=== PATIENT | female | born 1970 | race Caucasian/White ===

== ENCOUNTER 2018-12-23 00:27 | Emergency (ER) | payer SELFPAY ==
[2018-12-23] MEDS ORDERED: MORPHINE 2 MG/ML SYR ONE (01:02)
[2018-12-23] MEDS ORDERED: ONDANSETRON 4 MG/2 ML VIAL ONE (01:02)
[2018-12-23 01:39] LABS: Absolute Lymphocytes (CBC) 4.3 K/uL (0.7-4.9); Basophils % 0.8 % (0-1.3); Lymphocytes % 32.3 % (15.3-44.8); MPV 7.4 fL (7.6-11.3)
[2018-12-23 02:02] LABS: ALT/SGPT 22 U/L (12-78); AST/SGOT 19 U/L (15-37); Alkaline Phosphatase 90 U/L (45-117); BUN Blood Urea Nitrogen 6 mg/dL (7-18); Bicarbonate 23 mmol/L (21-32); Bilirubin Direct 0.1 mg/dL (0-0.2); Bilirubin Total 0.2 mg/dL (0.2-1.0); Glucose Level 86 mg/dL (74-106); NT PRO-BNP 29 pg/mL (<125); Potassium 3.4 mmol/L (3.5-5.1); Protein, Total 7.2 g/dL (6.4-8.2); Sodium Level 134 mmol/L (136-145); Troponin (Emerg Dept Use Only) < 0.02 ng/mL (0.0-0.045)
--- NOTE | 2018-12-23 05:06 | ER ---
Nurse's Notes [facility] Name: Caitlin Mulligan Age: 48 yrs Sex: Female : 1970 Arrival Date: 12/23/2018 Time: 00:38 Bed 26 Private MD: Diagnosis: Chest pain, unspecified Presentation: 12/23 00:39 Presenting complaint: Patient states: L rib pain x 2 weeks which has gotten aa1 significantly worse. States, "It feels like somebody broke my ribs." Pt denies injury. Transition of care: patient was not received from another setting of care. Onset of symptoms was December 09, 2018. Risk Assessment: Do you want to hurt yourself or someone else? Patient reports no desire to harm self or others. Initial Sepsis Screen: Does the patient meet any 2 criteria? No. Patient's initial sepsis screen is negative. Does the patient have a suspected source of infection? No. Patient's initial sepsis screen is negative. Care prior to arrival: None. 00:39 Method Of Arrival: Wheelchair aa1 00:39 Acuity: ODIN 3 aa1 Triage Assessment: 00:42 General: Appears in no apparent distress. uncomfortable, Behavior is appropriate for aa1 age, anxious, restless. Historical: - Allergies: 00:42 No Known Allergies; aa1 - Home Meds: 00:42 None [Active]; aa1 - PMHx: 00:42 None; aa1 - PSHx: 00:42 None; aa1 - Immunization history:: Flu vaccine is up to date. - Social history:: Smoking status: Patient uses tobacco products, smokes one-half pack cigarettes per day. - Ebola Screening: : No symptoms or risks identified at this time. Screenin:44 Abuse screen: Denies threats or abuse. Denies injuries from another. Nutritional wh screening: No deficits noted. Tuberculosis screening: No symptoms or risk factors identified. Fall Risk None identified. Assessment: 00:40 General: Appears in no apparent distress. uncomfortable. Pain: Complains of pain in wh Left rib cage Pain radiates to diaphragm Pain currently is 10 out of 10 on a pain scale. Quality of pain is described as heavy. Neuro: Level of Consciousness is awake, alert, obeys commands, Oriented to person, place, time, situation, Appropriate for age. Cardiovascular: Heart tones S1 S2. Respiratory: Airway is patent Respiratory effort is even, unlabored, Respiratory pattern is regular, symmetrical, Breath sounds are clear bilaterally. GI: Abdomen is flat, non-distended. : No signs and/or symptoms were reported regarding the genitourinary system. EENT: No signs and/or symptoms were reported regarding the EENT system. Derm: Skin is intact, is healthy with good turgor, Skin is pink, warm \\T\\ dry. normal. Musculoskeletal: Circulation, motion, and sensation intact. 02:02 Reassessment: Patient appears in no apparent distress at this time. Patient and/or tr5 family updated on plan of care and expected duration. Pain level reassessed. Pt in bed and appears to be sleeping. Pt's at bedside. 02:39 Reassessment: Patient appears in no apparent distress at this time. Patient and/or jb4 family updated on plan of care and expected duration. Pain level reassessed. Pt is resting in bed with eyes closed, respirations even and unlabored, no s/s of distress or pain noted. 03:30 Reassessment: Patient appears in no apparent distress at this time. No changes from jb4 previously documented assessment. Patient and/or family updated on plan of care and expected duration. Pain level reassessed. 04:45 Reassessment: Patient appears in no apparent distress at this time. Patient and/or jb4 family updated on plan of care and expected duration. Pain level reassessed. Patient is alert, oriented x 3, equal unlabored respirations, skin warm/dry/pink. 05:40 Reassessment: Patient appears in no apparent distress at this time. Patient and/or jb4 family updated on plan of care and expected duration. Pain level reassessed. Patient is alert, oriented x 3, equal unlabored respirations, skin warm/dry/pink. Vital Signs: 00:42 BP 158 / 96; Pulse 95; Resp 20; Temp 98.5; Pulse Ox 100% on R/A; Weight 54.43 kg; aa1 Height 5 ft. 2 in. (157.48 cm); Pain 9/10; 01:59 BP 108 / 67; Pulse 80; Resp 18; Pulse Ox 100% on R/A; tr5 02:30 BP 100 / 59; Pulse 72; Resp 16; Pulse Ox 93% on R/A; jb4 04:34 BP 98 / 78; Pulse 73; Resp 16; Pulse Ox 98% on R/A; Pain 8/10; jb4 00:42 Body Mass Index 21.95 (54.43 kg, 157.48 cm) aa1 ED Course: 00:38 Patient arrived in ED. aa1 00:42 Triage completed. aa1 00:42 Arm band placed on left wrist. aa1 00:44 Patient has correct armband on for positive identification. Bed in low position. Call wh light in reach. Side rails up X 1. Pulse ox on. NIBP on. 00:46 Ric Reyes PA is PHCP. [facility] 00:46 Trevon Castro MD is Attending Physician. [facility] 00:55 Inserted saline lock: 20 gauge in right antecubital area, using aseptic technique. tr5 01:15 EKG done, by ED staff. tr5 01:20 Initial lab(s) drawn, by ma, sent to lab. tr5 01:26 Lamont King, RN is Primary Nurse. tr5 03:58 CT Chest For PE Angio In Process Unspecified. EDMS 05:04 Glenn Hernandez MD is Referral Physician. gs 05:40 No provider procedures requiring assistance completed. IV discontinued, intact, jb4 bleeding controlled, No redness/swelling at site. Pressure dressing applied. Administered Medications: 01:00 Drug: morphine 2 mg {Note: RASS:0.} Route: IVP; Site: right antecubital; tr5 02:03 Follow up: Response: Pain is decreased; RASS: Alert and Calm (0) tr5 01:00 Drug: Zofran 4 mg Route: IVP; Site: right antecubital; tr5 02:02 Follow up: Response: Marked relief of symptoms tr5 05:39 Drug: TORadol - Ketorolac 15 mg Route: IVP; Site: right antecubital; jb4 05:40 Follow up: Response: Medication administered at discharge. jb4 05:39 Drug: Logan 5 mg-325 mg 1 tabs {Note: Rass score 0.} Route: PO; jb4 05:40 Follow up: Response: Medication administered at discharge.; RASS: Alert and Calm (0) jb4 Outcome: 05:05 Discharge ordered by . gs 05:40 Discharged to home ambulatory, with family. jb4 05:40 Condition: stable 05:40 Discharge instructions given to patient, family, Instructed on discharge instructions, follow up and referral plans. medication usage, Demonstrated understanding of instructions, follow-up care, medications, Prescriptions given X 1. 05:42 Patient left the ED. jb4 Signatures: Dispatcher [employer] EDMS Rox Gomez RN RN aa1 Ric Reyes PA PA jmm Bryson, James, RN RN jb4 Jose Gonzalez Gregory, MD MD gs Rodriguez, Tommie RN RN tr5
--- NOTE | 2018-12-23 05:07 | EDPHYS ---
Physician Documentation [facility] Name: Caitlin Mulligan Age: 48 yrs Sex: Female : 1970 Arrival Date: 12/23/2018 Time: 00:38 Bed 26 Private MD: ED Physician Trevon Castro HPI: 12/23 00:56 This 48 yrs old Female presents to ER via Wheelchair with complaints of Rib jmm Pain. 00:56 The patient or guardian reports chest pain that is located primarily in the anterior jmm chest wall, left. Onset: 2 week(s) ago. The chest pain is described as sharp. This is a 48 year old female with no chronic medical conditions that presents to the ED with complaints of left sided chest wall pain which awoke her from sleep this evening. Patient has had a cough over the past 2 weeks. Denies fever or chills. . Historical: - Allergies: 00:42 No Known Allergies; aa1 - Home Meds: 00:42 None [Active]; aa1 - PMHx: 00:42 None; aa1 - PSHx: 00:42 None; aa1 - Immunization history:: Flu vaccine is up to date. - Social history:: Smoking status: Patient uses tobacco products, smokes one-half pack cigarettes per day. - Ebola Screening: : No symptoms or risks identified at this time. ROS: 00:56 Constitutional: Negative for fever, chills, and weight loss. jmm 00:56 Cardiovascular: Positive for chest pain. 00:56 Respiratory: Positive for cough. 00:56 Abdomen/GI: Negative for abdominal pain, vomiting. 00:56 All other systems are negative. Exam: 00:56 Head/Face: atraumatic. jmm 00:56 Eyes: EOMI, no conjunctival erythema appreciated ENT: Moist Mucus Membranes Neck: Trachea midline, Supple 00:56 Cardiovascular: Regular rate and rhythm. No edema appreciated Respiratory: Normal respirations, no respiratory distress appreciated Abdomen/GI: Non distended, soft Back: Normal ROM Skin: General appearance color normal MS/ Extremity: Moves all extremities, no obvious deformities appreciated, no edema noted to the lower extremities Neuro: Awake and alert, normal gait Psych: Behavior is normal, Mood is normal, Patient is cooperative and pleasant 00:56 Constitutional: The patient appears alert, awake, anxious, uncomfortable. 00:56 Chest/axilla: chest is tender to palpation. 00:56 Cardiovascular: Rate: normal, Rhythm: regular, Pulses: no pulse deficits are appreciated. Vital Signs: 00:42 BP 158 / 96; Pulse 95; Resp 20; Temp 98.5; Pulse Ox 100% on R/A; Weight 54.43 kg; aa1 Height 5 ft. 2 in. (157.48 cm); Pain 9/10; 01:59 BP 108 / 67; Pulse 80; Resp 18; Pulse Ox 100% on R/A; tr5 02:30 BP 100 / 59; Pulse 72; Resp 16; Pulse Ox 93% on R/A; jb4 04:34 BP 98 / 78; Pulse 73; Resp 16; Pulse Ox 98% on R/A; Pain 8/10; jb4 00:42 Body Mass Index 21.95 (54.43 kg, 157.48 cm) aa1 MDM: 00:[address] [facility] 03:02 Transition of care: After a detail discussion of the patient's case, care is [facility] transferred to Trevon Castro MD. 12/23 01:28 Order name: Basic Metabolic Panel; Complete Time: 03:37 [facility] 12/23 01:28 Order name: Liver (Hepatic) Function; Complete Time: 03:37 [facility] 12/23 01:28 Order name: Troponin (Emerg Dept Use Only); Complete Time: 03:37 [facility] 12/23 01:28 Order name: NT PRO-BNP; Complete Time: 03:37 [facility] 12/23 01:28 Order name: Magnesium; Complete Time: 03:37 [facility] 12/23 01:28 Order name: CBC with Automated Diff; Complete Time: 03:37 [facility] 12/23 00:53 Order name: EKG; Complete Time: 01:30 [facility] 12/23 00:53 Order name: Cardiac monitoring; Complete Time: 01:27 [facility] 12/23 00:53 Order name: EKG - Nurse/Tech; Complete Time: 01:27 [facility] 12/23 00:53 Order name: IV Saline Lock; Complete Time: 01:27 [facility] 12/23 00:53 Order name: Labs collected and sent; Complete Time: 01: [facility] 12/23 00:53 Order name: O2 Per Protocol; Complete Time: 01: [facility] 12/23 00:53 Order name: O2 Sat Monitoring; Complete Time: 01:37 [facility] 12/23 00:53 Order name: CT Chest For PE Angio [facility] Administered Medications: 01:00 Drug: morphine 2 mg {Note: RASS:0.} Route: IVP; Site: right antecubital; tr5 02:03 Follow up: Response: Pain is decreased; RASS: Alert and Calm (0) tr5 01:00 Drug: Zofran 4 mg Route: IVP; Site: right antecubital; tr5 02:02 Follow up: Response: Marked relief of symptoms tr5 05:39 Drug: TORadol - Ketorolac 15 mg Route: IVP; Site: right antecubital; jb4 05:40 Follow up: Response: Medication administered at discharge. jb4 05:39 Drug: Severn 5 mg-325 mg 1 tabs {Note: Rass score 0.} Route: PO; jb4 05:40 Follow up: Response: Medication administered at discharge.; RASS: Alert and Calm (0) 4 Disposition: 12/23/18 05:05 Discharged to Home. Impression: Chest pain, unspecified. - Condition is Stable. - Discharge Instructions: Nonspecific Chest Pain. - Prescriptions for Naprosyn 500 mg Oral Tablet - take 1 tablet by ORAL route 2 times per day As needed take with food; 20 tablet. - Medication Reconciliation Form, Thank You Letter, Antibiotic Education, Prescription Opioid Use form. - Follow up: Glenn Hernandez MD; When: 2 - 3 days; Reason: Re-evaluation by your physician. Addendum: 12/26/2018 14:50 Co-signature as Attending Physician, Trevon Castro MD. g s Signatures: Dispatcher [employer] EDRox Haas RN RN aa1 Ric Reyes PA PA jmm Bryson, James, RN RN jb4 Trevon Castro MD MD gs Rodriguez, Tommie RN RN tr5 Corrections: (The following items were deleted from the chart) 12/23 01:38 01:30 BASIC METABOLIC PANEL+C.LAB.BRZ ordered. EDMS EDMS :38 01:30 CBC+H.LAB.BRZ ordered. EDMS EDMS :38 01:30 HEPATIC FUNCTION+C.LAB.BRZ ordered. EDMS EDMS 01:38 01:30 MAGNESIUM+C.LAB.BRZ ordered. EDMS EDMS 01:38 01:30 PROBNP+C.LAB.BRZ ordered. EDNV EDMS 01:38 01:30 PROTIME (+INR)+COAG.LAB.BRZ ordered. EDMS EDMS 01:38 01:30 TROPONIN (EMERG DEPT USE ONLY)+C.LAB.BRZ ordered. EDNV EDMS 05:42 05:05 12/23/2018 05:05 Discharged to Home. Impression: Chest pain, unspecified. jb4 Condition is Stable. Forms are Medication Reconciliation Form, Thank You Letter, Antibiotic Education, Prescription Opioid Use. Follow up: Glenn Hernandez; When: 2 - 3 days; Reason: Re-evaluation by your physician. gs
[2018-12-23] MEDS ORDERED: HYDROCODONE/APAP 5/325 MG TAB ONE (05:33)
[2018-12-23] MEDS ORDERED: KETOROLAC 30 MG/ML INJ ONE (05:33)
[2018-12-23 05:53] VITALS: TEMP 98.5
[2018-12-23 05:57] VITALS: BP 98/78; O2SAT 98
--- NOTE | 2018-12-23 07:19 | EKG ---
Test Date: 2018-12-23 Test Time: 01:14:36 Technical Support Agent: TR MEASUREMENT RESULTS: Intervals: Rate: 78 PA: 150 QRSD: 70 QT: 390 QTc: 444 [place]: P: 69 PA: 150 QRS: 75 T: 69 INTERPRETIVE STATEMENTS: Normal sinus rhythm Septal infarct, age undetermined Abnormal ECG No previous ECG available for comparison Electronically Signed On 12-23-18 07:18:24 CDT by Glenn Hernandez
--- NOTE | 2018-12-26 17:46 | RAD REPORT ---
EXAM DESCRIPTION: CT - Chest For Pe Angio - 12/23/2018 4:35 am CLINICAL HISTORY: The patient is 48 years old and is Female; left sided chest pain TECHNIQUE: Axial computed tomographic angiography images of the chest with intravenous contrast. S agittal and coronal reformatted images were created and reviewed. This CT exam was performed using one or more of the following dose reduction techniques: automated exposure control, adjustment of t he mA and/or kV according to patient size, and/or use of iterative reconstruction technique. MIP reconstructed images were created and reviewed. COMPARISON: No relevant prior studies available. FINDINGS: PULMONARY ARTERIES: There are no obvious filling defects identified within the pulmonary arteries to suggest pulmonary embolism. AORTA: No acute findings. No thoracic aortic aneurysm. LUNGS: Unremarkable. No mass. No consolidation. PLEURAL SPACE: Unremarkable. No significant effusion. No pneumothorax. HEART: Unremarkable. No cardiomegaly. No significant pericardial effusion. No evidence of RV dysfunction. BONES/JOINTS: No acute fracture. No dislocation. SOFT TISSUES: Unremarkable. LYMPH NODES: Unremarkable. No enlarged lymph nodes. SPLEEN: A splenic cyst is partially visualized measuring approximately 2 cm. IMPRESSION: No evidence of pulmonary embolism. Electronically signed by: Natalie Sal MD 12/23/2018 4:29 AM CDT Due to temporary technical issues with the PACS/Fluency reporting system, reports are being signed by the in house radiologist as a courtesy to ensure prompt reporting. The interpreting radiologist is f ully responsible for the content of the report.
== END 2018-12-23 05:42 | disposition home or self-care (01) ==
LOC: ER 00:27
DX: R07.9 Chest pain, unspecified (principal); F17.210 Nicotine dependence, cigarettes, uncomplicated
CPT/HCPCS: 36415; 71275; 80048; 80076; 83735; 83880; 84484; 85025; 93005; 96374; 96375; 99284; J2270; J2405; Q9967